=== PATIENT | male | born 1990 | race Caucasian/White ===

== ENCOUNTER 2017-06-28 10:31 | Emergency (ER) | payer OTHER ==
[2017-06-28 10:36] VITALS: TEMP 97.9
--- NOTE | 2017-06-28 11:32 | C.PDOC ---
History Of Present Illness 27 y/o male presents to ED for evaluation of left hand injury onset yesterday. Patient states he accidentally stabbed himself completely through left hand with screwdriver while at home. Patient complaints of new onset swelling and worsening pain to area. Patient denies fever, chills, numbness or any other complaints at this time. Patient is right hand dominant L HAND INJURY ONSET YEST. ACCIDENTALLY STABBED HIMSELF IN L HAND W SCREWDRIVER WHILE @ HOME. CO NEW ONSET SWELLING, WORSENING PAIN TO AREA. PS STABBED COMPLETELY THROUGH HAND. NO FEVER, OTHER ASSOC SX. R HANDED EXAM MILD DIST NONTOXIC EXT Time Seen by Provider: 06/28/17 11:24 Chief Complaint (Nursing): Abnormal Skin Integrity History Per: Patient History/Exam Limitations: no limitations Onset/Duration Of Symptoms: Days Current Symptoms Are (Timing): Still Present Quality: "Pain" Past Medical History Reviewed: Historical Data, Nursing Documentation, Vital Signs Vital Signs: Last Vital Signs Temp 97.9 F 06/28/17 10:35 Pulse 69 06/28/17 12:09 Resp 17 06/28/17 12:09 BP 118/65 06/28/17 12:09 Pulse Ox 98 06/28/17 12:09 - Medical History PMH: No Chronic Diseases Surgical History: No Surg Hx Family History: States: No Known Family Hx - Social History Hx Tobacco Use: Yes Hx Alcohol Use: Yes Hx Substance Use: No - Immunization History Hx Influenza Vaccination: No Review Of Systems Constitutional: Negative for: Fever, Chills Gastrointestinal: Negative for: Nausea, Vomiting Musculoskeletal: Positive for: Hand Pain Skin: Negative for: Rash Neurological: Negative for: Weakness, Numbness Physical Exam - Physical Exam Appears: Non-toxic, Other (Mild distress) Skin: Warm, Dry, No Rash Head: Normacephalic Eye(s): bilateral: Normal Inspection Oral Mucosa: Moist Neck: Normal ROM, Supple Chest: Symmetrical Extremity: Tenderness (Generalized to left hand), Capillary Refill (<2 seconds) , Swelling (Between right 4th and 5th MCP. No erythema), Other (Closed puncture wound between 4th and 5th palmar aspect of left hand. Dorsal aspect bruising betweth MCP 4 and 5, No tendon dysfunction ) Extremity: Bilateral: Normal ROM Pulses: Left Radial: Normal, Right Radial: Normal Neurological/Psych: Oriented x3, Normal Motor, Normal Sensation ED Course And Treatment O2 Sat by Pulse Oximetry: 100 (RA) Pulse Ox Interpretation: Normal - Physician Consult Information Time Consulting Physician Contacted: 11:40 Physician Contacted: Filiberto Olson Outcome Of Conversation: AWARE OF ER FINDINGS: SPLINT, ABX FU OFFICE Medical Decision Making Medical Decision Making: Patient given antibiotics and instructed to finish full course for prevention of infection and pain medication given to use when needed Brace applied by RN and patient instructed to follow up with hand surgeon Disposition Counseled Patient/Family Regarding: Diagnosis, Need For Followup, Rx Given - Disposition Referrals: Clinic,Med Surg [Primary Care Provider] - Filiberto Olson MD [Staff Provider] - Disposition: HOME/ ROUTINE Disposition Time: 11:44 Condition: IMPROVED Prescriptions: Acetaminophen/Codeine [Tylenol/Codeine 300 MG/30 MG] 2 tab PO Q6H #20 tab Amoxicillin/Clavulanate [Augmentin 875 MG-125 MG] 1 tab PO BID #14 tab Ibuprofen [Motrin] 600 mg PO Q6 #30 tab Instructions: Puncture Wound (ED) Forms: [employer] (Kenyan), Work Excuse Print Language: BENINESE - Clinical Impression Clinical Impression: Puncture wound, hand - Scribe Statement The provider has reviewed the documentation as recorded by the Aleibclayton Jean All medical record entries made by the Aleibclayton were at my direction and personally dictated by me. I have reviewed the chart and agree that the record accurately reflects my personal performance of the history, physical exam, medical decision making, and the department course for this patient. I have also personally directed, reviewed, and agree with the discharge instructions and disposition.
[2017-06-28] MEDS ORDERED: Tetanus/Diphtheria Toxoids 0.5 ml Syringe IM ONE ×2 (11:47→11:53)
[2017-06-28] MEDS ORDERED: Amoxicillin-Clav 875-125 mg Tab PO STA (11:47)
[2017-06-28] MEDS ORDERED: Amoxicillin-Clav 875-125 mg Tab PO ONE (11:52)
[2017-06-28 12:11] VITALS: BP 118/65; PULSE 69; RESP 17
[2017-06-28 12:16] VITALS: O2SAT 100
[2017-06-28] MEDS ORDERED: Bacitracin 500 Units/gm Oint Foilpak UD ONE (12:28)
--- NOTE | 2017-06-28 14:31 | RAD ---
PROCEDURE: Left Hand Radiographs. HISTORY: post injury COMPARISON: None. FINDINGS: BONES: Normal. No fracture. JOINTS: Normal. No osteoarthritic changes. SOFT TISSUES: Limited evaluation regarding possible soft tissue pathology - volar aspect. . No radiopaque foreign body here seen. Clinical correlation with the injury for example possible laceration is needed. OTHER FINDINGS: None. IMPRESSION: No fracture are osseous interruption. No radiopaque foreign body.
== END 2017-06-28 12:10 | disposition home or self-care (01) ==
LOC: SUPCPDRO 10:31 → C.ER 10:31
DX: S61.432A Puncture wound without foreign body of left hand, initial encounter (principal); W45.8XXA Other foreign body or object entering through skin, initial encounter; Y92.009 Unspecified place in unspecified non-institutional (private) residence as the place of occurrence of the external cause

== ENCOUNTER 2017-10-26 14:48 | Emergency (ER) | payer OTHER ==
[2017-10-26 15:31] VITALS: BP 124/73; PULSE 75; RESP 18; TEMP 99.4; O2SAT 97
[2017-10-26 17:04] LABS: URINE BILIRUBIN NEGATIVE (NEGATIVE); URINE BLOOD NEGATIVE (NEGATIVE); URINE CLARITY Clear (Clear); URINE COLOR Yellow (YELLOW); URINE GLUCOSE (UA) NORMAL (Normal); URINE LEUKOCYTE ESTERASE NEG Leu/uL (Negative); URINE NITRATE NEGATIVE (NEGATIVE); URINE PROTEIN NEGATIVE (NEGATIVE); URINE UROBILINOGEN NORMAL mg/dL (0.2-1.0)
--- NOTE | 2017-10-26 17:28 | C.PDOC ---
History Of Present Illness 27 y/o male presents to the ED c/o fever, sore throat and congestion which began 2 days ago. Patient also reports generalized body aches, particularly his lower back. He has not taken any medicine for symptoms and denies shortness of breath, rash chest pain, abdominal pain, urinary/bowel incontinence, extremity numbness/weakness, trauma and falls. Time Seen by Provider: 10/26/17 16:17 Chief Complaint (Nursing): Back Pain History Per: Patient History/Exam Limitations: no limitations Onset/Duration Of Symptoms: Days (2) Current Symptoms Are (Timing): Still Present Quality Of Discomfort: Aching Previous Symptoms: Back Pain Associated Symptoms: denies: Incontinence, New Weakness, New Numbness Additional History Per: Patient Past Medical History Reviewed: Historical Data, Nursing Documentation, Vital Signs Vital Signs: Last Vital Signs Temp 99.4 F 10/26/17 15:30 Pulse 75 10/26/17 15:30 Resp 18 10/26/17 15:30 BP 124/73 10/26/17 15:30 Pulse Ox 97 10/26/17 19:10 - Medical History PMH: No Chronic Diseases Surgical History: No Surg Hx Family History: States: Unknown Family Hx - Social History Hx Tobacco Use: Yes Hx Alcohol Use: Yes Hx Substance Use: No - Immunization History Hx Influenza Vaccination: No Review Of Systems Constitutional: Positive for: Fever ENT: Positive for: Throat Pain Cardiovascular: Negative for: Chest Pain Respiratory: Negative for: Shortness of Breath Gastrointestinal: Negative for: Abdominal Pain Genitourinary: Negative for: Incontinence Musculoskeletal: Positive for: Back Pain (lower), Other (generalized body aches ) Neurological: Negative for: Weakness, Numbness Physical Exam - Physical Exam Appears: Well, Non-toxic, No Acute Distress Skin: Normal Color, Warm, Dry Head: Atraumatic, Normacephalic Eye(s): bilateral: Normal Inspection, EOMI Ear(s): Bilateral: Normal Nose: Normal, No Discharge Oral Mucosa: Moist Throat: Normal, No Erythema, No Exudate Neck: Normal ROM, Supple Lymphatic: Normal Exam Chest: Symmetrical, No Deformity, No Tenderness Cardiovascular: Rhythm Regular, No Murmur Respiratory: Normal Breath Sounds, No Rales, No Rhonchi, No Wheezing Gastrointestinal/Abdominal: Soft, No Tenderness Back: No CVA Tenderness, Paraspinal Tenderness (lumbar) Extremity: Normal ROM, Capillary Refill (less than 2 seconds ) Neurological/Psych: Oriented x3, Normal Speech, Normal Cognition Gait: Steady ED Course And Treatment O2 Sat by Pulse Oximetry: 97 (on RA) Pulse Ox Interpretation: Normal Progress Note: UA ordered and reviewed. Motrin PO and Tamiflu PO administered. On reassessment, patient is resting comfortably, remains afebrile. CTA. Abdomen soft, nontender. Patient is advised to follow up with PMD within 1-2 days for further evaluation and/or return to the ED if symptoms persist or worsen. Disposition - Disposition Disposition: HOME/ ROUTINE Disposition Time: 17:27 Condition: STABLE Additional Instructions: Vaya a [place] mdico o la clnica en 2-5 ha sin falta, para mas evaluacin. [place] los medicamentos [place] indicado. Volver a la jaya de emergencia en cualquier momento si los sntomas persisten o empeoran. Prescriptions: Guaifen/Dextromethorphan/PE [Mucinex Fast-Max Congest-Cough] 1 each PO Q6 #20 tablet Ibuprofen [Motrin] 600 mg PO Q6 PRN #20 tab PRN Reason: Pain, Mild (1-3) Oseltamivir Phosphate [Tamiflu] 75 mg PO BID #10 capsule Instructions: Influenza (ED) Forms: [employer] (Thai) Print Language: ENGLISH - Clinical Impression Clinical Impression: URI (upper respiratory infection), Viral illness - PA / [employer] / Resident Statement MD/DO has reviewed & agrees with the documentation as recorded. - Scribe Statement The provider has reviewed the documentation as recorded by the Scribe (Martha Egan) All medical record entries made by the Scribe were at my direction and personally dictated by me. I have reviewed the chart and agree that the record accurately reflects my personal performance of the history, physical exam, medical decision making, and the department course for this patient. I have also personally directed, reviewed, and agree with the discharge instructions and disposition.
== END 2017-10-26 17:33 | disposition home or self-care (01) ==
LOC: C.ER 14:48
DX: J06.9 Acute upper respiratory infection, unspecified (principal); Z87.891 Personal history of nicotine dependence